=== PATIENT | male | born 1995 | race Caucasian/White ===

== ENCOUNTER 2020-10-23 22:13 | Emergency (ER) | payer OTHER ==
[~2020-10-23] VITALS: Ht 188 cm; Wt 87.8 kg
[2020-10-23 22:14] VITALS: BP 138/92
== END 2020-10-24 00:58 | disposition left against medical advice (07) ==
LOC: EDBD 22:13 → M ED 22:13
DX: Z53.21 Procedure and treatment not carried out due to patient leaving prior to being seen by health care provider (principal)